=== PATIENT | female | born 1945 | race Caucasian/White ===

== ENCOUNTER → 2018-08-20 | Outpatient (CLI) | payer MEDICARE ==
[~2018-08-20] MED LIST: ACET-1600 PO; ACYC-113 PO; AMOUR THYROID PO; AMOX1TAB12 PO; CELE200C PO; CLOP75TA52 PO; ESCI20TA10 PO; GABA300C10 PO; HYDR12.517 PO; LISI-170 PO; LISI30TA4 PO; METH500T7 PO; METH750T2 PO; METO25TA35 PO; NITR50CA11 PO; OXYC1TAB8 PO; PANT40TA5 PO; SERT50TA5 PO; SIMV20TA3 PO; THYR60TA4 PO
[2018-08-20 15:46] LABS: BASOPHILS # (AUTO) 0.04 x10^3/uL (0-0.1); BASOPHILS % (AUTO) 1 % (0-1); EOSINOPHILS % (AUTO) 2 % (1-7); LYMPHOCYTES # (AUTO) 1.14 x10^3/uL (1-3.4); LYMPHOCYTES % (AUTO) 23 % (22-44); MD NO; MEAN CORPUSCULAR HEMOGLOBIN 32.9 pg (27.0-34.8); MEAN CORPUSCULAR VOLUME 96.9 fL (80-100); MEAN PLATELET VOLUME 9.7 fL (7.4-10.4); MONOCYTES # (AUTO) 0.54 x10^3/uL (0.2-0.8); MONOCYTES % (AUTO) 11 % (2-9); NEUTROPHILS # (AUTO) 3.08 x10^3/uL (1.8-6.8); NEUTROPHILS % (AUTO) 63 % (42-75); PLATELET COUNT 151 x10^3/uL (130-400); RED BLOOD COUNT 4.21 x10^6/uL (3.82-5.3); RED CELL DISTRIBUTION WIDTH 13.3 % (9.6-15.2)
== END | disposition home or self-care (01) ==
LOC: CFH 11:49
PROVIDERS: ATTEND Nurse Practitioner Primary Care
DX: Z12.4 Encounter for screening for malignant neoplasm of cervix (principal); Z12.39 Encounter for other screening for malignant neoplasm of breast; Z12.11 Encounter for screening for malignant neoplasm of colon; Z13.220 Encounter for screening for lipoid disorders; R53.83 Other fatigue; E78.2 Mixed hyperlipidemia; K21.9 Gastro-esophageal reflux disease without esophagitis; E03.9 Hypothyroidism, unspecified; F06.31 Mood disorder due to known physiological condition with depressive features; I25.2 Old myocardial infarction; N39.0 Urinary tract infection, site not specified; M19.90 Unspecified osteoarthritis, unspecified site; M54.2 Cervicalgia; R59.9 Enlarged lymph nodes, unspecified; R79.9 Abnormal finding of blood chemistry, unspecified
CPT/HCPCS: 36415; 84443; 85025

== ENCOUNTER → 2018-08-25 | Outpatient (CLI) | payer MEDICARE ==
[~2018-08-25] MED LIST changes: +OMNIPAQUE 350 MG/ML, 100ML BOTTLE ONE
[2018-08-25 12:01] LABS: CREATININE 0.76 mg/dL (0.55-1.02)
== END | disposition home or self-care (01) ==
LOC: RAD 11:21
PROVIDERS: ATTEND Nurse Practitioner Primary Care
DX: R59.0 Localized enlarged lymph nodes (principal); I10 Essential (primary) hypertension; I25.2 Old myocardial infarction
CPT/HCPCS: 36415; 70491; 71250; 82565; Q9967

== ENCOUNTER → 2018-09-02 | Outpatient (CLI) | payer MEDICARE ==
[~2018-09-02] MED LIST changes: -OMNIPAQUE 350 MG/ML, 100ML BOTTLE ONE
[2018-09-02 16:30] LABS: ALBUMIN 3.5 g/dL (3.4-5.0); CALCIUM 8.5 mg/dL (8.5-10.1); CHLORIDE 108 mmol/L (98-107)
[2018-09-02 16:36] LABS: ALANINE AMINOTRANSFERASE 21 U/L (12-78); ALKALINE PHOSPHATASE 74 U/L (45-117); ANION GAP 4 mmol/L (5-15); BILIRUBIN,TOTAL 0.6 mg/dL (0.2-1.0); CREATININE 0.77 mg/dL (0.55-1.02); TOTAL PROTEIN 6.8 g/dL (6.4-8.2)
== END | disposition home or self-care (01) ==
LOC: CFH 13:43
PROVIDERS: ATTEND Nurse Practitioner Primary Care
DX: R53.83 Other fatigue (principal); E78.2 Mixed hyperlipidemia; K21.9 Gastro-esophageal reflux disease without esophagitis; I10 Essential (primary) hypertension; M54.2 Cervicalgia; R59.9 Enlarged lymph nodes, unspecified; N39.0 Urinary tract infection, site not specified; I25.2 Old myocardial infarction
CPT/HCPCS: 36415; 80053

== ENCOUNTER 2018-09-16 10:19 | Outpatient (CLI) | payer MEDICARE ==
[~2018-09-16 10:19] MED LIST changes: +SERT50TA28 PO; -SERT50TA5 PO
== END 2018-09-16 23:59 | disposition home or self-care (01) ==
LOC: LAB 10:19
PROVIDERS: ATTEND Nurse Practitioner Primary Care
DX: Z12.4 Encounter for screening for malignant neoplasm of cervix (principal); Z12.39 Encounter for other screening for malignant neoplasm of breast; Z12.11 Encounter for screening for malignant neoplasm of colon; Z13.220 Encounter for screening for lipoid disorders; E78.2 Mixed hyperlipidemia; K21.9 Gastro-esophageal reflux disease without esophagitis; I10 Essential (primary) hypertension; R53.83 Other fatigue; E03.9 Hypothyroidism, unspecified; F06.31 Mood disorder due to known physiological condition with depressive features; B00.9 Herpesviral infection, unspecified; I25.2 Old myocardial infarction; N39.0 Urinary tract infection, site not specified; M19.90 Unspecified osteoarthritis, unspecified site; M54.9 Dorsalgia, unspecified; M54.2 Cervicalgia; R59.9 Enlarged lymph nodes, unspecified; R79.9 Abnormal finding of blood chemistry, unspecified
CPT/HCPCS: 36415; 84443; 88184; 88185

== ENCOUNTER → 2018-10-04 | Outpatient (CLI) | payer MEDICARE | END | disposition home or self-care (01) | LOC: CFH 16:09 | PROVIDERS: ATTEND Nurse Practitioner Primary Care | DX: M47.814 Spondylosis without myelopathy or radiculopathy, thoracic region (principal); M47.816 Spondylosis without myelopathy or radiculopathy, lumbar region; M48.04 Spinal stenosis, thoracic region; M48.061 Spinal stenosis, lumbar region without neurogenic claudication; M43.25 Fusion of spine, thoracolumbar region; I10 Essential (primary) hypertension; E03.9 Hypothyroidism, unspecified; F10.10 Alcohol abuse, uncomplicated | CPT/HCPCS: 72148 ==

== ENCOUNTER → 2019-02-09 | Outpatient (CLI) | payer MEDICARE | END | disposition home or self-care (01) | LOC: RAD 09:35 | PROVIDERS: ATTEND Neurological Surgery | DX: M51.16 Intervertebral disc disorders with radiculopathy, lumbar region (principal); M50.30 Other cervical disc degeneration, unspecified cervical region; M51.36 Other intervertebral disc degeneration, lumbar region; M46.1 Sacroiliitis, not elsewhere classified; M25.852 Other specified joint disorders, left hip; M25.851 Other specified joint disorders, right hip | CPT/HCPCS: 72082; 72131; 73523 ==